=== PATIENT | female | born 1955 | race Caucasian/White ===

== ENCOUNTER 2017-01-20 22:24 | Emergency (ER) | payer OTHER ==
[2017-01-20 22:34] VITALS: BP 148/90; PULSE 111; BMI 29.2
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
== END 2017-01-21 00:12 | disposition home or self-care (01) ==
LOC: JER 22:24
DX: S00.81XA Abrasion of other part of head, initial encounter (principal); V47.5XXA Car driver injured in collision with fixed or stationary object in traffic accident, initial encounter; Y92.414 Local residential or business street as the place of occurrence of the external cause; Y93.89 Activity, other specified
CPT/HCPCS: 70450-TC; 99283-25